=== PATIENT | female | born 1990 | race Hispanic/Latino ===

== ENCOUNTER 2017-01-13 13:08 | Observation (INO) | payer MEDICAID ==
[2017-01-13 13:48] VITALS: BP 137/81
[2017-01-13] MEDS ORDERED: LACTATED RINGERS 1,000 ML ONE (13:56)
== END 2017-01-13 16:42 | disposition home or self-care (01) ==
LOC: INTOOBSV 13:08 → LD 13:08 → UNDODISIN 16:42
PROVIDERS: ADMIT Obstetrics & Gynecology; ATTEND Obstetrics & Gynecology
DX: Z32.01 Encounter for pregnancy test, result positive (principal); O99.331 Smoking (tobacco) complicating pregnancy, first trimester; O99.341 Other mental disorders complicating pregnancy, first trimester; F33.1 Major depressive disorder, recurrent, moderate
CPT/HCPCS: G0378; G0379; J7120

== ENCOUNTER 2017-01-23 09:04 | Inpatient (IN) | payer MEDICAID ==
[2017-01-23] MEDS ORDERED: PITOCin/NS 30 UNIT/500ML IV ONE (11:00)
[2017-01-23] MEDS ORDERED: LACTATED RINGERS 1,000 ML IV ONE (11:10)
[2017-01-23] MEDS ORDERED: PITOCin/NS 20 UNIT/1000ML DRIP IV ONE (11:30)
[2017-01-23 11:43] LABS: Hematocrit 31.7 % (30.3-42.9); Hemoglobin 10.6 gm/dl (10.1-14.3); Mean Corpuscular HGB Conc 34 % (30-34); Mean Corpuscular Hemoglobin 31 pg (28-32); Mean Corpuscular Volume 92 fl (79-97); Platelet Count 186 K/mm3 (140-440); Red Blood Count 3.45 M/mm3 (3.65-5.03); White Blood Count 14.9 K/mm3 (4.5-11.0)
[2017-01-23 11:51] LABS: Bilirubin,Urine NEG (Negative); Blood,Urine NEG (Negative); Ketones,Urine NEG (Negative); Leukocyte Esterase,Urine TR (Negative); Nitrite,Urine NEG (Negative); Protein,Urine <15 mg/dL mg/dL (Negative); Urobilinogen,Urine < 2.0 mg/dL (<2.0)
[2017-01-23] MEDS: LACTATED RINGERS 1,000 ML IV SCH ×3 (11:51→17:44)
[2017-01-23] MEDS: PITOCin/NS 30 UNIT/500ML 30 UNITS/500 ML BAG IV SCH ×6 (11:52→16:01)
[2017-01-23] MEDS ORDERED: MINERAL OIL PO PRN (12:00)
[2017-01-23] MEDS ORDERED: PITOCin/NS 30 UNIT/500ML 30 UNITS/500 ML BAG IV SCH (12:00)
[2017-01-23] MEDS ORDERED: SUBLIMAZE IV PRN (12:00)
[2017-01-23] MEDS ORDERED: STADOL IV PRN (12:00)
[2017-01-23] MEDS ORDERED: ePHEDrine SULFATE IV PRN ×2 (12:00→17:45)
[2017-01-23] MEDS ORDERED: XYLOCAINE 2% INFILTRATI ONE (12:00)
[2017-01-23] MEDS ORDERED: BRETHINE SUB-Q PRN (12:00)
[2017-01-23] MEDS ORDERED: BRETHINE IVP PRN (12:00)
[2017-01-23] MEDS ORDERED: LACTATED RINGERS 1,000 ML IV SCH (12:00)
[2017-01-23 12:48] LABS: Basophils % (Manual) 0 % (0.0-1.8); Blastocytes % (Manual) 0 %; Eosinophils % (Manual) 0 % (0.0-4.3)
[2017-01-23 12:49] LABS: RBC Morphology Normal
[2017-01-23 12:50] LABS: Diff Status Complete; Platelet Estimate Consistent w Auto
[2017-01-23] MEDS ORDERED: NARCAN 2 MG/2 ML IV PRN (17:45)
--- NOTE | 2017-01-23 17:45 | Anesthesia Consultation ---
Anesthesia Consult and Med Hx Date of service: 01/23/17 - Airway Anesthetic Teeth Evaluation: Good ROM Head & Neck: Adequate Mental/Hyoid Distance: Adequate Mallampati Class: Class II Intubation Access Assessment: Probably Good - Pulmonary Exam CTA: Yes - Cardiac Exam Cardiac Exam: RRR - Pre-Operative Health Status ASA Pre-Surgery Classification: ASA2 Proposed Anesthetic Plan: Epidural - Pulmonary Hx Asthma: Yes (last attack as a child) COPD: No Hx Pneumonia: No - Cardiovascular System Hx Hypertension: No - Central Nervous System Hx Seizures: No Hx Psychiatric Problems: Yes (bipolar skizofrentic) - Endocrine Hx Renal Disease: No Hx End Stage Renal Disease: No Hx Hypothyroidism: No Hx Hyperthyroidism: No - Hematic Hx Anemia: No Hx Sickle Cell Disease: No - Other Systems Hx Alcohol Use: No
[2017-01-23] MEDS ORDERED: fentaNYL-BUPIV 2 MCG/ML-0.125% 200 MCG/100 ML BAG EPIDURAL SCH (18:00)
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
[2017-01-23] MEDS: PITOCin/NS 20 UNIT/1000ML DRIP 20 UNITS/1,000 ML BAG IV SCH ×2 (19:34→21:14)
--- NOTE | 2017-01-23 19:44 | Procedure Note ---
OB Delivery Note - Delivery Date of Delivery: 01/23/17 Surgeon: TOOÑ MALCOLM Estimated blood loss: 100cc - Vaginal Delivery presentation: vertex Delivery position: OA Intrapartum events: none Delivery induction: oxytocin Delivery augmentation: rupture of membranes Delivery monitor: external FHT, external uterine Route of delivery: Delivery placenta: spontaneous Delivery cord: 3 umbilical vessels Delivery laceration: none Anesthesia: epidural Delivery comments: Viable male delivered over intact perineum. No nuchal cord. Mouth and nose suctioned on field. Infant placed on maternal abdomen. Cord clamped and cut after done pulsating. Weight 8 pounds 2 ounces. Apgars 9,9. No lacerations. Patient tolerated procedure well. - A at 1 minute: 9 at 5 minutes: 9 Infant Gender: Male
[2017-01-23] MEDS ORDERED: MOTRIN PO ONE (21:09)
[2017-01-23] MEDS ORDERED: MILK OF MAGNESIA PO PRN (22:06)
[2017-01-23] MEDS ORDERED: PHENERGAN PO PRN (22:06)
[2017-01-23] MEDS ORDERED: BENADRYL PO PRN (22:06)
[2017-01-23] MEDS ORDERED: PHENERGAN PR PRN (22:06)
[2017-01-23] MEDS ORDERED: SODIUM CHLORIDE FLUSH SYRINGE 10 ML IV NR (22:06)
[2017-01-23] MEDS ORDERED: LANSINOH TP PRN (22:06)
[2017-01-23] MEDS ORDERED: DULCOLAX PR PRN (22:06)
[2017-01-23] MEDS ORDERED: TUCKS PAD TP PRN (22:06)
[2017-01-23] MEDS ORDERED: ZOFRAN IV PRN (22:06)
[2017-01-23] MEDS ORDERED: TYLENOL PO PRN (22:06)
[2017-01-24] MEDS: NORCO 5/325 PO PRN ×4 (02:03→23:34)
[2017-01-24] MEDS: MOTRIN PO SCH ×4 (05:44→23:33)
--- NOTE | 2017-01-24 09:09 | Progress Note ---
Subjective Date of service: 01/24/17 Interval history: No anesthetic related complaints. Objective - Constitutional Vitals: Vital Signs - 12hr 01/23/17 01/24/17 01/24/17 21:55 01:55 02:03 Temperature 98.9 F 98.5 F Pulse Rate 96 H 96 H Respiratory 18 18 20 Rate Blood Pressure 109/62 134/67 [Left] 01/24/17 01/24/17 05:55 08:16 Temperature 98.4 F Pulse Rate 94 H Respiratory 20 20 Rate Blood Pressure 128/72 [Left] - Labs CBC & Chem 7: 01/23/17 10:20 Labs: Abnormal lab results 01/23/17 Range/Units 10:20 WBC 14.9 H (4.5-11.0) K/mm3 RBC 3.45 L (3.65-5.03) M/mm3 RDW 17.0 H (13.2-15.2) % Lymphocytes % (Manual) 1.0 L (13.4-35.0) % Lymphocytes # (Manual) 0.1 L (1.2-5.4) K/mm3
[2017-01-24 09:23] LABS: Hematocrit 28.5 % (30.3-42.9); Hemoglobin 9.4 gm/dl (10.1-14.3)
--- NOTE | 2017-01-24 09:59 | Progress Note ---
Assessment and Plan PPD 1 s/p . Doing well. Patient would prefer discharge this evening after 24 hours Subjective - Subjective Date of service: 01/24/17 Interval history: Patient is a 26 year old who presents for post dates induction of labor. Her course has been uncomplicated expect for repeat infections with trichomonas. Patient remained a smoker during her . Patient reports: appetite normal, voiding normally, pain well controlled, ambulating normally [place]: doing well Objective - Vital Signs Latest vital signs: Vital Signs Temp Pulse Resp BP BP 01/24/17 08:16 20 01/24/17 05:55 98.4 F 94 H 20 128/72 01/24/17 02:03 20 01/24/17 01:55 98.5 F 96 H 18 134/67 01/23/17 21:55 98.9 F 96 H 18 109/62 01/23/17 21:00 98.0 F 01/23/17 20:52 84 150/67 01/23/17 20:21 81 131/65 01/23/17 20:06 88 132/63 01/23/17 19:37 98 H 130/61 01/23/17 19:33 89 133/74 01/23/17 19:10 84 141/98 01/23/17 19:08 87 147/98 01/23/17 19:06 89 131/79 01/23/17 19:04 86 149/70 01/23/17 19:02 90 130/74 01/23/17 19:00 83 137/69 01/23/17 18:58 86 135/71 01/23/17 18:56 94 H 130/66 01/23/17 18:54 86 143/71 01/23/17 18:52 86 142/67 01/23/17 18:50 88 141/68 01/23/17 18:49 86 126/80 01/23/17 18:46 94 H 142/76 01/23/17 18:44 90 144/72 01/23/17 18:42 85 146/71 01/23/17 18:40 88 145/72 01/23/17 18:38 88 144/68 01/23/17 18:36 85 141/67 01/23/17 18:34 96 H 139/65 01/23/17 18:32 85 131/66 01/23/17 18:30 85 133/62 01/23/17 18:28 93 H 137/63 01/23/17 18:26 96 H 141/72 01/23/17 18:24 92 H 139/67 01/23/17 18:22 93 H 130/70 01/23/17 18:20 96 H 129/72 01/23/17 18:18 96 H 121/60 01/23/17 18:16 100 H 131/57 01/23/17 18:14 86 134/72 01/23/17 18:12 88 122/64 01/23/17 18:10 96 H 123/62 01/23/17 18:08 101 H 124/75 01/23/17 18:06 96 H 121/70 01/23/17 18:04 99 H 118/65 01/23/17 18:02 96 H 121/67 01/23/17 18:00 99 H 117/68 01/23/17 17:58 105 H 115/63 01/23/17 17:56 99 H 118/68 01/23/17 17:54 99 H 118/68 01/23/17 17:52 102 H 124/67 01/23/17 17:50 106 H 129/70 01/23/17 17:48 105 H 125/67 01/23/17 17:46 106 H 126/70 01/23/17 17:44 98 H 121/62 01/23/17 17:42 152/75 01/23/17 17:39 102 H 151/73 01/23/17 17:28 96 H 136/74 01/23/17 16:04 96.5 F L 105 H 20 125/72 01/23/17 15:58 105 H 125/72 01/23/17 15:08 106 H 131/70 01/23/17 14:47 104 H 128/60 01/23/17 14:38 105 H 134/67 01/23/17 14:08 111 H 124/73 01/23/17 13:40 110 H 135/65 01/23/17 13:08 106 H 136/72 01/23/17 12:40 112 H 156/72 01/23/17 12:30 105 H 134/72 01/23/17 12:08 116 H 123/65 01/23/17 11:54 108 H 131/71 01/23/17 11:07 110 H 124/75 01/23/17 10:08 109 H 121/71 Intake and Output 01/23/17 01/24/17 01/24/17 22:59 06:59 14:59 Intake Total 1209.083 420 Output Total 150 600 Balance 1059.083 -180 Intake: IV 969.083 Lactated Ringers 1,000 ml 735.417 @ 125 mls/hr IV DIRECT DANILO Rx#:[id number] PITOCin/NS 20 UNIT/1000ML 208.333 DRIP 20 units In 1,000 ml @ 125 mls/hr IV DIRECT DANILO Rx#:[id number] PITOCin/NS 30 UNIT/500ML 25.333 30 units In 500 ml @ 4 mls/hr IV TITR DANILO Rx#: [id number] Intake, Free Water 240 420 Output: Urine 150 600 Void 150 600 Other: Total, Output Amount 150 300 # Voids Void 1 Estimated Blood Loss 100 - Exam Cardiovascular: Present: Regular rate, Normal S1, Normal S2 Lungs: Present: Clear to auscultation, Normal air movement Abdomen: Present: normal appearance, soft, normal bowel sounds Uterus: Present: normal, firm Extremities: Present: normal - Labs Labs: Abnormal lab results 01/23/17 01/24/17 Range/Units 10:20 08:52 WBC 14.9 H (4.5-11.0) K/mm3 RBC 3.45 L (3.65-5.03) M/mm3 Hgb 9.4 L (10.1-14.3) gm/dl Hct 28.5 L (30.3-42.9) % RDW 17.0 H (13.2-15.2) % Lymphocytes % (Manual) 1.0 L (13.4-35.0) % Lymphocytes # (Manual) 0.1 L (1.2-5.4) K/mm3
--- NOTE | 2017-01-24 10:08 | Discharge Summary ---
Providers - Providers Date of Admission: 01/23/17 09:04 Date of discharge: 01/24/17 Attending physician: TOÑO MALCOLM Primary care physician: TOÑO MALCOLM Hospitalization Reason for admission: induction of labor Delivery: Episiotomy: none Laceration: none complications: none Discharge diagnosis: IUP at term delivered [place] baby: male Hospital course: unremarkable Condition at discharge: Good Disposition: DC-01 TO HOME OR SELFCARE Plan - Discharge Medications Prescriptions: Ibuprofen [Motrin 600 MG tab] 600 mg PO Q6H #40 tablet - Provider Discharge Summary Activity: routine, no sex for 6 weeks, no heavy lifting 4 weeks, no strenuous exercise Diet: routine Instructions: routine Additional instructions: [] Smoking cessation referral if applicable(refer to patient education folder for contact #) [] Refer to [facility] Booklet Call your doctor immediately for: * Fever > 100.5 * Heavy vaginal bleeding ( >1 pad per hour) * Severe persistent headache * Shortness of breath * Reddened, hot, painful area to leg or breast * Drainage or odor from incision. * Keep incision clean and dry at all times and follow doctor's instructions regarding bathing/showering - Follow up plan Follow up: TOÑO MALCOLM MD [Primary Care Provider] - 6 Weeks
[2017-01-24] MEDS: COLACE PO SCH ×2 (10:10→23:33)
[2017-01-24] MEDS: PRENATAL VITAMIN PO SCH (10:10)
[2017-01-24] MEDS ORDERED: ALUM-MAG HYDROX-SIMETH 200-200-20MG/5ML PO PRN (10:16)
[2017-01-24 12:15] LABS: Urine Drugs of Abuse Note Disclamer
[2017-01-25] MEDS: NORCO 5/325 PO PRN (05:33)
[2017-01-25] MEDS: MOTRIN PO SCH ×2 (05:33→11:58)
[2017-01-25] MEDS: COLACE PO SCH (11:58)
[2017-01-25] MEDS: PRENATAL VITAMIN PO SCH (11:58)
[2017-01-25 14:42] VITALS: BP 148/90
== END 2017-01-25 13:45 | disposition home or self-care (01) | DRG 774 ==
LOC: LD 09:04 → OB 21:36
PROVIDERS: ADMIT Obstetrics & Gynecology; ATTEND Obstetrics & Gynecology
PROC: 10E0XZZ Delivery of Products of Conception, External Approach (ICD-10-PCS; principal; 2017-01-23)
PROC: 10907ZC Drainage of Amniotic Fluid, Therapeutic from Products of Conception, Via Natural or Artificial Opening (ICD-10-PCS; 2017-01-23)
PROC: 3E0S3BZ Introduction of Anesthetic Agent into Epidural Space, Percutaneous Approach (ICD-10-PCS; 2017-01-23)
PROC: 00HU33Z Insertion of Infusion Device into Spinal Canal, Percutaneous Approach (ICD-10-PCS; 2017-01-23)
PROC: 3E0P3VZ Introduction of Hormone into Female Reproductive, Percutaneous Approach (ICD-10-PCS; 2017-01-23)
DX: O48.0 Post-term pregnancy (principal); O98.913 Unspecified maternal infectious and parasitic disease complicating pregnancy, third trimester; O99.334 Smoking (tobacco) complicating childbirth; Z3A.41 41 weeks gestation of pregnancy; Z37.0 Single live birth
CPT/HCPCS: 36415; 80307; 81001; 85007; 85014; 85018; 85025; 86592; 86850; 86900; 86901; 99211; G0463; J2590; J3010; J7120